=== PATIENT | male | born 1965 | race Caucasian/White ===

== ENCOUNTER 2021-07-07 17:11 | Inpatient (IN) | payer MEDICAID, OTHER ==
[~2021-07-07] VITALS: Ht 175.3 cm; Wt 69.5 kg
[2021-07-07 20:13] LABS: HEMATOCRIT 42.5 % (42.0-52.0); HEMOGLOBIN 14.1 g/dl (13.5-17.5); MEAN CORPUSCULAR HEMOGLOBIN 30.4 pg (27.0-33.0); MEAN CORPUSCULAR HGB CONC 33.2 g/dl (32.0-36.5); MEAN CORPUSCULAR VOLUME 91.6 fl (80.0-96.0); PLATELET COUNT, AUTOMATED 277 10^3/uL (150-450); RED BLOOD COUNT 4.64 10^6/uL (4.30-6.10); WHITE BLOOD COUNT 9.6 10^3/uL (4.0-10.0)
[2021-07-07 20:48] LABS: ACETAMINOPHEN LEVEL < 2.0 UG/ML (10.0-30.0); ALBUMIN 3.7 GM/DL (3.2-5.2); ALT/SGPT 19 U/L (12-78); AMPHETAMINES LEVEL URINE NEGATIVE (NEGATIVE); BARBITURATES URINE NEGATIVE (NEGATIVE); BENZODIAZEPINES URINE NEGATIVE (NEGATIVE); BILIRUBIN,DIRECT 0.1 MG/DL (0.0-0.2); BILIRUBIN,TOTAL 0.3 MG/DL (0.2-1.0); BLOOD UREA NITROGEN 11 MG/DL (7-18); CALCIUM LEVEL 9.4 MG/DL (8.5-10.1); CANNABINOIDS URINE POSITIVE (NEGATIVE); CARBON DIOXIDE LEVEL 28 MEQ/L (21-32); CHLORIDE LEVEL 110 MEQ/L (98-107); COCAINE METABOLITE URINE NEGATIVE (NEGATIVE); ETHYL ALCOHOL (ETHANOL) < 0.003 % (0.000-0.010); GLOMERULAR FILTRATION RATE > 60.0 (>56); GLUCOSE, FASTING 91 MG/DL (70-100); METHADONE URINE NEGATIVE (NEGATIVE); OPIATES URINE NEGATIVE (NEGATIVE); PHENCYCLIDINE URINE NEGATIVE (NEGATIVE); POTASSIUM SERUM 4.1 MEQ/L (3.5-5.1); SALICYLATE LEVEL 2.6 MG/DL (5.0-30.0); SODIUM LEVEL 141 MEQ/L (136-145); TOTAL PROTEIN 6.9 GM/DL (6.4-8.2)
[2021-07-07 22:23] LABS: RSV AMPLIFICATION NEGATIVE (NEGATIVE)
[2021-07-07] MEDS ORDERED: LORazepam 1 MG TAB PO STA (22:49)
[2021-07-07] MEDS ORDERED: HOME MED LIST COMPLETE! XX SCH (23:55)
[2021-07-08] MEDS ORDERED: LORazepam 2 MG/ML VIAL IM STA (06:24)
[2021-07-08] MEDS ORDERED: LORazepam 2 MG/ML VIAL As Ordered ONE (06:24)
[2021-07-09] MEDS ORDERED: ACETAMINOPHEN 500 MG TAB PO ONE (10:55)
[2021-07-10] MEDS ORDERED: IBUPROFEN 400MG TAB PO PRN (14:20)
[2021-07-10] MEDS ORDERED: LORazepam 1 MG TAB PO PRN (14:20)
[2021-07-10] MEDS ORDERED: traZODone 50 MG TAB PO PRN (14:20)
[2021-07-10] MEDS ORDERED: MOM 30ML SUSPENSION UDC PO PRN (14:20)
[2021-07-10] MEDS: NICOTINE 21MG/24HR 1 EA TRANSDERMAL TD SCH (14:47)
[2021-07-11 00:28] VITALS: BP 147/93
[2021-07-11] MEDS: NICOTINE 21MG/24HR 1 EA TRANSDERMAL TD SCH (08:35)
[2021-07-11] MEDS: fluPHENAZine 5MG TABLET PO SCH (20:10)
[2021-07-12 06:52] VITALS: BP 129/76
[2021-07-12 07:20] LABS: CHOLESTEROL RISK RATIO 4.176 (<5)
[2021-07-12] MEDS: fluPHENAZine 5MG TABLET PO SCH ×2 (08:08→21:43)
[2021-07-12] MEDS: NICOTINE 21MG/24HR 1 EA TRANSDERMAL TD SCH (08:08)
[2021-07-12 17:58] VITALS: BP 142/89
[2021-07-13 06:05] VITALS: BP 112/74
[2021-07-13] MEDS: NICOTINE 21MG/24HR 1 EA TRANSDERMAL TD SCH (09:00)
[2021-07-13] MEDS: fluPHENAZine 5MG TABLET PO SCH ×3 (09:00→20:12)
[2021-07-13 18:14] VITALS: BP 132/82
[2021-07-14 06:43] VITALS: BP 150/96
[2021-07-14] MEDS ORDERED: BENZTROPINE 1 MG TAB PO PRN (08:20)
[2021-07-14] MEDS: NICOTINE 21MG/24HR 1 EA TRANSDERMAL TD SCH (08:30)
[2021-07-14] MEDS: fluPHENAZine 5MG TABLET PO SCH ×2 (09:05→20:08)
[2021-07-14 16:36] LABS: CK-MB VALUE MASS 2.6 NG/ML (<3.6); MB/CK RELATIVE INDEX 1.43 (< OR =4)
[2021-07-14 18:00] VITALS: BP 110/79
[2021-07-14 19:50] LABS: CK-MB VALUE MASS 2.6 NG/ML (<3.6); CPK CREATINE PHOSPHOKINASE 194 U/L (39-308); MB/CK RELATIVE INDEX 1.34 (< OR =4)
[2021-07-15 06:00] VITALS: BP 125/80
[2021-07-15] MEDS: fluPHENAZine 5MG TABLET PO SCH ×2 (08:45→20:13)
[2021-07-15] MEDS: NICOTINE 21MG/24HR 1 EA TRANSDERMAL TD SCH (08:46)
[2021-07-15] MEDS: ACETAMINOPHEN TAB 650MG DOSE (2X325MG) PO PRN (17:33)
[2021-07-15 18:00] VITALS: BP 130/84
[2021-07-15] MEDS ORDERED: MAALOX 30 ML SUSP *UDC PO PRN (22:15)
[2021-07-16 06:46] VITALS: BP 124/83
[2021-07-16] MEDS: NICOTINE 21MG/24HR 1 EA TRANSDERMAL TD SCH (09:00)
[2021-07-16] MEDS: fluPHENAZine 5MG TABLET PO SCH ×2 (09:04→21:06)
[2021-07-16] MEDS ORDERED: fluPHENAZine DECAN 25MG/ML 5ML VIAL (J2680) IM SCH (15:00)
[2021-07-16 18:00] VITALS: BP 128/84
[2021-07-16] MEDS: diphenhydrAMINE 25MG CAP PO PRN (21:53)
[2021-07-17 06:00] VITALS: BP 123/83
[2021-07-17] MEDS: fluPHENAZine 5MG TABLET PO SCH ×2 (08:31→21:39)
[2021-07-17] MEDS: NICOTINE 21MG/24HR 1 EA TRANSDERMAL TD SCH (08:31)
[2021-07-17 18:00] VITALS: BP 132/90
[2021-07-18 06:35] VITALS: BP 125/73
[2021-07-18] MEDS: NICOTINE 21MG/24HR 1 EA TRANSDERMAL TD SCH (09:00)
[2021-07-18] MEDS: ACETAMINOPHEN TAB 650MG DOSE (2X325MG) PO PRN (14:56)
[2021-07-18] MEDS ORDERED: MOM 30ML SUSPENSION UDC PO ONE (15:45)
[2021-07-18 17:43] LABS: BASO # 0.1 10^3/uL (0.0-0.2); BASO % 0.7 % (0.0-1.0); EOS % 0.4 % (0.0-3.0); HEMATOCRIT 44.5 % (42.0-52.0); HEMOGLOBIN 14.7 g/dl (13.5-17.5); LYMPH % 21.5 % (24.0-44.0); MEAN CORPUSCULAR HEMOGLOBIN 30.4 pg (27.0-33.0); MEAN CORPUSCULAR VOLUME 91.9 fl (80.0-96.0); MONO # 0.7 10^3/uL (0.0-0.8); NEUTROPHILS # 6.3 10^3/uL (1.5-8.5); NEUTROPHILS % 68.7 % (36.0-66.0); PLATELET COUNT, AUTOMATED 303 10^3/uL (150-450); RED BLOOD COUNT 4.84 10^6/uL (4.30-6.10); WHITE BLOOD COUNT 9.1 10^3/uL (4.0-10.0)
[2021-07-18 18:00] VITALS: BP 138/87
[2021-07-18 18:08] LABS: ALBUMIN 3.7 GM/DL (3.2-5.2); ALT/SGPT 27 U/L (12-78); BILIRUBIN,TOTAL 0.2 MG/DL (0.2-1.0); BLOOD UREA NITROGEN 20 MG/DL (7-18); CALCIUM LEVEL 9.7 MG/DL (8.5-10.1); CARBON DIOXIDE LEVEL 27 MEQ/L (21-32); CHLORIDE LEVEL 108 MEQ/L (98-107); CREATININE FOR GFR 0.82 MG/DL (0.70-1.30); GLOMERULAR FILTRATION RATE > 60.0 (>56); GLUCOSE, FASTING 79 MG/DL (70-100); MAGNESIUM LEVEL 2.1 MG/DL (1.8-2.4); POTASSIUM SERUM 4.3 MEQ/L (3.5-5.1); SODIUM LEVEL 137 MEQ/L (136-145); TOTAL PROTEIN 6.8 GM/DL (6.4-8.2)
[2021-07-18] MEDS: SENOKOT S TAB PO SCH (21:00)
[2021-07-18] MEDS: fluPHENAZine 5MG TABLET PO SCH (21:00)
[2021-07-19 06:29] VITALS: BP 132/80
[2021-07-19] MEDS: SENOKOT S TAB PO SCH (09:00)
[2021-07-19] MEDS: NICOTINE 21MG/24HR 1 EA TRANSDERMAL TD SCH (09:00)
[2021-07-19] MEDS ORDERED: MOM 30ML SUSPENSION UDC PO SCH (09:00)
[2021-07-19] MEDS ORDERED: SENOKOT S TAB PO PRN (13:25)
[2021-07-19] MEDS ORDERED: NICOTINE 21MG/24HR 1 EA TRANSDERMAL TD PRN (13:25)
[2021-07-19] MEDS ORDERED: MOM 30ML SUSPENSION UDC PO PRN (13:25)
[2021-07-19 17:31] VITALS: BP 112/70
[2021-07-19] MEDS: fluPHENAZine 5MG TABLET PO SCH (21:00)
[2021-07-20 07:05] VITALS: BP 113/75
[2021-07-20 17:27] VITALS: BP 124/78
[2021-07-21 07:12] VITALS: BP 115/74
[2021-07-21 18:03] VITALS: BP 119/80
[2021-07-22 06:31] VITALS: BP 123/75
[2021-07-22] MEDS: ACETAMINOPHEN TAB 650MG DOSE (2X325MG) PO PRN (14:56)
[2021-07-22 18:46] VITALS: BP 119/88
[2021-07-22] MEDS: diphenhydrAMINE 25MG CAP PO PRN (19:48)
[2021-07-23 06:40] VITALS: BP 128/81
[2021-07-23] MEDS ORDERED: OLANZapine ORAL DISINTEGRATING TAB 5MG PO ONE (11:15)
[2021-07-23] MEDS ORDERED: NITROGLYCERIN 0.4 MG SUBL TABLET SL STA (18:51)
[2021-07-23] MEDS ORDERED: ASPIRIN 81 MG CHEW TABLET PO ONE (18:55)
[2021-07-23] MEDS ORDERED: NITROGLYCERIN 0.3 MG SUBL TAB SL PRN (18:55)
[2021-07-23 19:00] VITALS: BP 117/85
[2021-07-23 19:53] LABS: CK-MB VALUE MASS 1.9 NG/ML (<3.6); MB/CK RELATIVE INDEX 1.88 (< OR =4)
[2021-07-23] MEDS ORDERED: GI COCKTAIL 50ML BTL(HYOSCYAMINE/MAALOX/LIDOCAINE VISCOUS)(1:3:1) PO ONE (20:00)
[2021-07-23 20:18] VITALS: BP 120/80
[2021-07-23] MEDS: diphenhydrAMINE 25MG CAP PO PRN (20:24)
[2021-07-24] MEDS: ACETAMINOPHEN TAB 650MG DOSE (2X325MG) PO PRN ×2 (14:03→20:34)
[2021-07-24 17:58] VITALS: BP 131/89
[2021-07-25] MEDS: ACETAMINOPHEN TAB 650MG DOSE (2X325MG) PO PRN (05:56)
[2021-07-25 06:38] VITALS: BP 139/93
[2021-07-25] MEDS ORDERED: FLUP10TA11 PO (08:40)
[2021-07-25] MEDS ORDERED: NITR0.3S4 SL (08:40)
[2021-07-25] MEDS ORDERED: NICO21PAT TD (08:40)
[2021-07-25] MEDS ORDERED: BENZ-52 PO (08:40)
[2021-07-25] MEDS ORDERED: fluPHENAZine DECAN 25MG/ML 5ML VIAL (J2680) IM SCH (09:00)
== END 2021-07-25 14:11 | disposition home or self-care (01) | DRG 757 ==
LOC: M ED 17:11 → M ED INP 07-10 14:19 → M PSY 07-11 00:28
PROVIDERS: ADMIT Student in an Organized Health Care Education/Training Program; ATTEND Psychiatry & Neurology Psychiatry
DX: F79 Unspecified intellectual disabilities (principal); F20.0 Paranoid schizophrenia; F15.10 Other stimulant abuse, uncomplicated; F60.2 Antisocial personality disorder; R07.89 Other chest pain; R10.31 Right lower quadrant pain; I88.0 Nonspecific mesenteric lymphadenitis; K40.90 Unilateral inguinal hernia, without obstruction or gangrene, not specified as recurrent; Z59.00 Homelessness unspecified